=== PATIENT | male | born 1990 | race African-American/Black ===

== ENCOUNTER 2017-08-05 17:46 | Emergency (ER) | payer SELFPAY ==
[2017-08-05 17:47] VITALS: BP 137/75; PULSE 109; RESP 16; TEMP 36.9; O2SAT 100; BMI 28.7
[2017-08-05 18:58] LABS: Absolute Lymphocyte Count 1.79 X10^3/ul (0.83-4.51); Absolute Neutrophil Count 6.5 X10^3/uL (2.0-7.7); Basophil# 0.01 X10^3/uL; Basophil% 0.1 % (0-1); Eosinophil# 0.17 X10^3/uL; Eosinophils% 1.8 % (0-5); Hematocrit 43.1 % (40-54); Hemoglobin 14.8 g/dl (13.0-16.5); Lymphocyte # 1.79 X10^3/ul (4.0); Lymphocyte % 19.4 % (19-41); Mean Corp Hgb Conc 34.3 g/gl (32-36); Mean Corpuscular Hgb 32.2 pg (27.0-32.0); Mean Corpuscular Volume 93.7 fL (80-94); Mean Platelet Vol. 8.8 fl (6.2-12.0); Monocyte# 0.82 X10^3/uL; Monocyte% 8.9 % (0-10); Neutrophil # 6.45 X10^3/uL (2.7-7.7); Neutrophil % 69.8 % (47-70); POSITIVE COUNT NO; POSITIVE DIFFERENTIAL NO; POSITIVE MORPHOLOGY NO; Platelet Count 297 K/mm3 (150-450); RBC Distribution Width CV 13.2 % (11.6-14.6); RBC Distribution Width SD 45.6 fl (35.1-43.9); White Blood Count 9.2 K/mm3 (4.4-11.0)
[2017-08-05 19:45] LABS: Alcohol, Blood (Medical)-Serum < 3.0 mg/dL
[2017-08-05 19:48] LABS: Anion Gap 9 (5-15); BUN 9 mg/dL (7-18); BUN/Creat Ratio 8.2 RATIO (10-20); Calcium,Total 8.9 mg/dL (8.5-10.1); Chloride 107 mmol/L (98-107); EST Glomerular Filtration Rate 85 mL/min (>60); Est Glom Filt Rate - Afr Amer 103 mL/min (>60); Estimated Creatinine Clearance 104.15 ml/min; Glucose 94 mg/dL (74-106); Potassium 3.3 mmol/L (3.5-5.1); Sodium Level 140 mmol/L (136-145)
[2017-08-05 19:54] VITALS: RESP 18
[2017-08-05 19:56] LABS: Amphetamine Urine VISTA POSITIVE (<1000 ng/mL); Barbiturate Urine VISTA NEGATIVE (< 200 ng/mL); Benzodiazepine Urine VISTA NEGATIVE (< 200 ng/mL); Cocaine Urine VISTA NEGATIVE (< 300 ng/mL); Ecstacy Urine VISTA NEGATIVE (< 500 ng/mL); Methadone Urine VISTA NEGATIVE (< 300 ng/mL); PCP Urine VISTA NEGATIVE (< 25 ng/mL); THC Urine VISTA POSITIVE (< 50 ng/mL); Vista UDS pH Range 6
--- NOTE | 2017-08-05 20:13 | NURSING ---
CRISIS HERE TO SEE PT.
[2017-08-05 21:21] VITALS: BP 127/76; PULSE 72; RESP 18; O2SAT 100
[2017-08-05 22:17] VITALS: RESP 18
--- NOTE | 2017-08-05 23:07 | ED.VISSUMM ---
- ER Visit Summary Date of Service: 08/05/17 Chief Complaint: [Abnormal behavior] History of Present Illness: The patient is a 26 M [presents to the emergency department with complaint of increasing abnormal behavior. Patient states that he moved back to [place] in January 2017 from [place]. In [place] patient was being medicated for bipolar disorder and personality disorder. Patient does not know what medications he was taking. Once he moved to [place] he stopped taking all his medications because he thought he was doing better. Over last several weeks he has noticed increased agitation and explosive disorder. Patient states that he will have certain behaviors and not have any recollection of what he did. Last night states that he was standing on a bridge and had a fleeting thought of what would happen if he were to just jump. Paper patient does not believe that he would actually harm himself at this time. Patient would like to get some help to get back on his medications. Patient denies auditory or visual hallucinations.] Physical Examination: [HEENT-PERRLA, EOMI. Cranial nerves II through XII grossly intact. TMs clear. Mucous membranes moist. No adenopathy. Cardiovascular-regular rate and rhythm without murmur or ectopy Lungs-clear to auscultation, chest wall stable without crepitus or subcu emphysema Abdomen-normoactive bowel sounds, soft, nontender, no rebound or rigidity, no peritoneal signs. Extremities-intact ?4, normal range of motion, normal pulses, atraumatic] Test Results: [CBC with differential obtained was normal. Chemistries unremarkable. Toxicology screen was positive for amphetamines and marijuana. Alcohol was negative.] Emergency Department Course and Treatment: [Patient pending evaluation by crisis] Treatment Plan: [Pending evaluation by crisis] Disposition: [Pending evaluation by crisis] Impression: [Depression Suicidal ideation Dissociative personality disorder] This note was generated with Searchles dictation software. It may contain incorrect words, spelling, and punctuation that were not noted in review of the chart prior to signing ED Disposition - Plan for ED Patient: Chief Complaint: Mental Health Referrals: Care Physician,No Primary [Primary Care Provider] -
--- NOTE | 2017-08-05 23:10 | ED.DCSUM_ITS ---
- ER Visit Summary Date of Service: 08/05/17 Chief Complaint: [Abnormal behavior] History of Present Illness: The patient is a 26 M [presents to the emergency department with complaint of increasing abnormal behavior. Patient states that he moved back to [place] in January 2017 from [place]. In [place] patient was being medicated for bipolar disorder and personality disorder. Patient does not know what medications he was taking. Once he moved to [place] he stopped taking all his medications because he thought he was doing better. Over last several weeks he has noticed increased agitation and explosive disorder. Patient states that he will have certain behaviors and not have any recollection of what he did. Last night states that he was standing on a bridge and had a fleeting thought of what would happen if he were to just jump. Paper patient does not believe that he would actually harm himself at this time. Patient would like to get some help to get back on his medications. Patient denies auditory or visual hallucinations.] Physical Examination: [HEENT-PERRLA, EOMI. Cranial nerves II through XII grossly intact. TMs clear. Mucous membranes moist. No adenopathy. Cardiovascular-regular rate and rhythm without murmur or ectopy Lungs-clear to auscultation, chest wall stable without crepitus or subcu emphysema Abdomen-normoactive bowel sounds, soft, nontender, no rebound or rigidity, no peritoneal signs. Extremities-intact ?4, normal range of motion, normal pulses, atraumatic] Test Results: [CBC with differential obtained was normal. Chemistries unremarkable. Toxicology screen was positive for amphetamines and marijuana. Alcohol was negative.] Emergency Department Course and Treatment: [Patient pending evaluation by crisis ] Treatment Plan: [Pending evaluation by crisis] Disposition: [Pending evaluation by crisis] Impression: [Depression Suicidal ideation Dissociative personality disorder] This note was generated with castaclip dictation software. It may contain incorrect words, spelling, and punctuation that were not noted in review of the chart prior to signing ED Disposition - Plan for ED Patient: Chief Complaint: Mental Health Referrals: Care Physician,No Primary [Primary Care Provider] -
[2017-08-05 23:35] VITALS: BP 138/61; PULSE 89; RESP 18; O2SAT 98
--- NOTE | 2017-08-05 23:42 | ED.RN ---
EKG AND MAR WITH [employer] FAXED TO [facility].
[2017-08-06 01:00] VITALS: RESP 14
[2017-08-06 02:00] VITALS: RESP 16
--- NOTE | 2017-08-06 02:10 | EKG12_ITS ---
Test Reason : REYNALDO Blood Pressure : / mmHG Vent. Rate : 076 BPM Atrial Rate : 076 BPM P-R Int : 138 ms QRS Dur : 078 ms QT Int : 376 ms P-R-T Axes : 063 072 070 degrees QTc Int : 423 ms Normal sinus rhythm Normal ECG Confirmed by ELVIN HILARIO, ILDA ([id number]), map editor DARA SIM ([id number]) on 08/11/2017 3:03:34 PM Referred By: [facility] Confirmed By:ILDA OCONNOR MD
[2017-08-06 03:07] VITALS: RESP 14
--- NOTE | 2017-08-06 03:25 | ED.RN ---
ED FROM [facility] CALLED TO REPORT PT IS ACCEPTED.
[2017-08-06 03:42] VITALS: BP 110/73; PULSE 64; RESP 14; TEMP 36.9; O2SAT 99
[2017-08-06 04:15] VITALS: RESP 16
== END 2017-08-06 04:16 ==
PROVIDERS: Emergency Provider Emergency Medicine
DX: F44.9 Dissociative and conversion disorder, unspecified (principal); F32.9 Major depressive disorder, single episode, unspecified; R45.851 Suicidal ideations; Z72.0 Tobacco use; Z79.51 Long term (current) use of inhaled steroids
CPT/HCPCS: 80048; 80307; 80320; 85025; 93005; 99284; G0480

== ENCOUNTER 2018-09-30 15:37 | Emergency (ER) | payer SELFPAY ==
[2018-09-30 15:38] VITALS: BP 116/69; PULSE 77; RESP 17; TEMP 36.4; O2SAT 98; BMI 32.9
[2018-09-30 15:45] VITALS: BP 118/70; PULSE 70; RESP 14; O2SAT 98
--- NOTE | 2018-09-30 15:57 | CT_ITS ---
STUDY: CT ABDOMEN AND PELVIS WITHOUT CONTRAST REASON FOR EXAM: Male, 27 years old. Right abdominal pain since this a.m. RADIATION DOSAGE (If Supplied By Facility): CTDIvol = ( 13.97 ) mGy, DLP = ( 750.67 ) mGycm TECHNIQUE: Transaxial images were obtained from the dome of the diaphragm to the symphysis pubis without oral contrast, and without intravenous contrast. Sagittal and coronal images were reconstructed. Individualized dose optimization techniques were used for this CT. COMPARISON: 06/03/2014 FINDINGS: The visualized lung bases are unremarkable. The visualized portions of the heart are within normal limits. There is decreased attenuation of the liver consistent with steatosis. Normal gallbladder and extrahepatic biliary system. Normal spleen. Normal pancreas. Normal bilateral adrenal glands. Normal right kidney. Normal left kidney. Normal visualized stomach. Normal small intestine. Normal colon. The appendix is visualized and appears normal. Normal abdominal aorta. Normal inferior vena cava. Normal retroperitoneum. Normal urinary bladder. Normal abdominal wall. Normal osseous structures. CT/Abdomen/Pelvis without Cont IMPRESSION: No CT evidence of acute abdominopelvic pathology. No evidence of appendicitis, acute intestinal pathology, or acute obstructive uropathy. Fatty liver. Electronically Signed: Rudi Smith MD at 16:25 EDT Tel , Service support ,
[2018-09-30 16:15] LABS: Absolute Neutrophil Count 7.3 X10^3/uL (2.0-7.7); Basophil# 0.04 X10^3/uL; Basophil% 0.4 % (0-1); Eosinophil# 0.43 X10^3/uL; Eosinophils% 3.9 % (0-5); Hematocrit 41.1 % (40-54); Hemoglobin 14.5 g/dL (13.0-16.5); Lymphocyte % 21.1 % (19-41); Mean Corp Hgb Conc 35.3 g/dL (32-36); Mean Corpuscular Hgb 32.8 pg (27.0-32.0); Mean Platelet Vol. 9.3 fl (6.2-12.0); Monocyte# 0.77 X10^3/uL; Monocyte% 7.1 % (0-10); NRBC Flagged by Analyzer 0 % (0-5); Neutrophil # 7.31 X10^3/uL (2.7-7.7); Neutrophil % 67.1 % (47-70); Platelet Count 235 K/mm3 (150-450); RBC Distribution Width SD 44.5 fl (35.1-43.9); Red Blood Count 4.42 M/mm3 (4.6-6.2); White Blood Count 10.9 K/mm3 (4.4-11.0)
[2018-09-30 16:29] LABS: ALB/GLOB Ratio 1.2 RATIO (0.9-2.4); AST(SGOT) 24 U/L (15-37); Alanine Aminotransfer ALT/SGPT 53 U/L (16-61); Albumin, Serum 3.7 g/dL (3.2-5.0); Alkaline Phosphatase 67 U/L (45-117); Anion Gap 7 (5-15); BUN 11 mg/dL (7-18); BUN/Creat Ratio 12.6 RATIO (10-20); Calcium,Total 8.5 mg/dL (8.5-10.1); Chloride 109 mmol/L (98-107); Creatinine, Serum 0.88 mg/dL (0.70-1.30); EST Glomerular Filtration Rate 110 mL/min (>60); Est Glom Filt Rate - Afr Amer 132 mL/min (>60); Estimated Creatinine Clearance 124.97 ml/min; Globulin 3.1 g/dL (2.2-4.2); Glucose 91 mg/dL (74-106); Lipase 89 U/L (73-393); Potassium 3.6 mmol/L (3.5-5.1); Protein, Total 6.8 g/dL (6.4-8.2); Sodium Level 143 mmol/L (136-145)
[2018-09-30] MEDS: 0.9% Normal Saline 1,000 ML 1000 ML IV (16:37)
--- NOTE | 2018-09-30 16:56 | ED.VIS.GI ---
History of Present Illness Informant: Patient - Abdominal Pain/Flank Pain Onset: Today Context: Sudden Onset Timing: Continuous Quality: Dull Location: RLQ Current Severity: Moderate Maximum Severity: Severe Worsened by: Food Relieved by: Remaining Still - Nausea/Vomiting/Emesis GI Symptom: Nausea, Vomiting Onset: Today Quality: Nonbilious Severity: Severe Episodes: 3 - Diarrhea/Melena/Hematochezia GI Symptom: Negative for: Diarrhea, Melena, Hematochezia Associated Symptoms: Negative for: Dysuria, Frequency, Hematuria, Urgency Narrative: 27-year-old male presents with right lower quadrant abdominal pain. He woke up from a nap several hours ago and has been having right lower quadrant pain and 3 episodes of vomiting. No fevers. He has loss of appetite. Chills but no documented fever. No urinary symptoms. No diarrhea melena or hematochezia. No fevers. No back pain. No trauma or injury. History of fatty liver. Prior similar symptoms: No Recent Illness/Hospitalization: No <Greg Winkler - Last Filed: 09/30/18 16:59> <Marshall Fernández - Last Filed: 10/03/18 07:54> Chief Complaint: Abd Pain Past Medical History Prior records reviewed: Yes Past Medical History: - - fatty liver Surgical History: no surgical history Lives: With Family Smoking Status: Current every day smoker <Greg Winkler - Last Filed: 09/30/18 16:59> <Amanda Fernándezo - Last Filed: 10/03/18 07:54> - Allergies and Home Meds Allergies/Adverse Reactions: Allergies acetaminophen [From Tylenol] Allergy (Verified 09/30/18 15:38) Other Primary Care Physician: Cruzito Lima MD [STAFF PHYSICIAN] - Care Physician,No Primary [Primary Care Provider] - Review of Systems All systems negative except as indicated General: Reports: Chills. Denies: Fever Gastrointestinal: Reports: Abdominal pain, Nausea, Vomiting <Greg Winkler - Last Filed: 09/30/18 16:59> ENT: Denies: Bilateral ear pain, Rhinorrhea, Sore throat Cardiovascular: Denies: Chest pain, Palpitations Respiratory: Denies: Dyspnea, Cough, Dyspnea on exertion Gastrointestinal: Denies: Diarrhea, Melena, Hematochezia Genitourinary: Denies: Dysuria, Hematuria, Frequency Musculoskeletal: Denies: Myalgias, Arthralgias, Neck pain, Back pain, Extremity Pain Skin: Denies: Rash, Wounds Neurological: Denies: Headache, Weakness, Numbness Hematologic: Denies: Easy bruising, Easy bleeding <PradeepMarshall - Last Filed: 10/03/18 07:54> Physical Exam Vital Signs/Narrative: Vital Signs Temp Pulse Resp BP Pulse Ox 09/30/18 15:45 70 14 118/70 98 09/30/18 15:38 97.6 F L 77 17 116/69 98 Inital Vital Signs reviewed: Yes General: Well nourished, Well developed, Obese, No Acute Distress Head: Normocephalic, Atraumatic Eyes: Perrl, EOMI ENT: Moist mucous membranes Neck: Supple, Nontender Cardiovascular: Regular rate, Regular rhythm, No murmurs Respiratory: No distress, CTA bilaterally, Chest nontender Abdomen: Soft, Nondistended, Normal bowel sounds, No masses, Tender. Negative for: Psoas sign, Obturator sign, Rovsig's sign, Baires's sign Back: Nontender Extremities: Nontender, No edema Skin: Normal color, No rash Neurological: Alert, Oriented x3 <Greg Winkler - Last Filed: 09/30/18 16:59> Diagnostic/Tx/Re-eval CT: Abdomen and Pelvis - Medical Decision Making 27-year-old male presents with right lower quadrant abdominal pain with concern for appendicitis. Declined antibiotics. Laboratory work-up unremarkable. CT showed no acute. Repeat abdominal exam soft, nontender with no abrasion noted will be discharged home advised to have a repeat abdominal exam in 48 hours with his primary care physician or return to the emergency department. <Greg Winkler - Last Filed: 09/30/18 16:59> - Medical Decision Making Patient presents with abdominal pain that she localizes to the right lower quadrant. Patient denies fever or chills. She denies anorexia. She denies intolerance to food. She denies dysuria, frequency, urgency or hematuria. She denies history of trauma. Vital signs noted. She is afebrile. HEENT exam is unremarkable. Lungs are clear to auscultation. Heart is regular. Abdomen is soft with tenderness in the right lower quadrant. She does have tenderness in the proximity McBurney's point. Differential diagnosis includes mesenteric adenitis, appendicitis, inflammatory bowel disorder, ovarian cyst, ruptured, versus abdominal pain of unknown etiology. Patient's work-up including CAT scan is unremarkable. Patient was discharged to home with appropriate home-going instructions. <FernándezMarshall - Last Filed: 10/03/18 07:54> ED Disposition <Greg Winkler - Last Filed: 09/30/18 16:59> <PradeepMarshall - Last Filed: 10/03/18 07:54> - Plan for ED Patient: Disposition: Home or Assisted Living Diagnosis: Abdominal pain Instructions: ABDOMINAL PAIN, Unkown Cause, (Male) Prescriptions: Dicyclomine HCl [Bentyl] 20 mg PO TIDAC #20 cap Prescription Printed Ondansetron [Zofran Odt] 4 mg PO Q8H PRN PRN #10 tab PRN Reason: Nausea Prescription Printed Referrals: Care Physician,No Primary [Primary Care Provider] - Cruzito Lima MD [STAFF PHYSICIAN] -
[2018-09-30 17:09] VITALS: BP 112/74; PULSE 68; RESP 14; O2SAT 98
== END 2018-09-30 17:37 | disposition home or self-care (01) ==
PROVIDERS: Emergency Provider Physician Assistant Medical
DX: R10.31 Right lower quadrant pain (principal); E66.9 Obesity, unspecified
CPT/HCPCS: 74176; 80053; 83690; 85025; 96360; 99285; J7030; A4216

== ENCOUNTER 2023-08-12 09:58 | Emergency (ER) | payer MEDICAID, SELFPAY ==
[2023-08-12 09:58] VITALS: BP 130/111; PULSE 53; RESP 14; TEMP 37; O2SAT 99; BMI 28.8
--- NOTE | 2023-08-12 10:05 | EDS_ITS ---
HPI History of Present Illness Chief Complaint: Nausea/Vomiting Detail of Chief Complaint: Nausea, vomiting diarrhea Informant: patient Onset/Context/Timing Onset: Today (0700) Context: Sudden Onset Timing: Intermittent and Waxes and wanes Quality: Nausea, vomiting and diarrhea Location: GI Current Severity: Severe Maximum Severity: Severe Worsened by: Patient believes he has food poisoning Relieved by: Nothing Associated Symptoms Associated Symptoms: Subjective fever Narrative Narrative: Patient is a 32-year-old male. He has history of hyperactive airway disease and was noted to be on dicyclomine in the past. He presents with nausea, vomiting diarrhea that started this morning. He has vomited 15-20 times has had numerous loose stools. He denies coffee-ground emesis or what appears to be blood in his emesis. He denies mucus or blood in his stool. He states his stool is watery. No one else that ate the food he ate is ill. He last ate at 5 PM. He denies headache, visual, ocular auditory symptoms. He denies cardiac respiratory symptoms Prior similar symptoms: Yes Recent Illness/Hospitalization: No PFSH PFSH Medical History no medical history Home Medications ?Medication ?Instructions ?Recorded ?Last Taken ?Type albuterol sulfate 90 mcg/actuation 1 - 2 puff inhalation Q4H PRN PRN 04/30/13 Unknown History aerosol inhaler (Ventolin HFA) Wheezing dicyclomine 10 mg capsule 20 mg (2 x 10 mg) PO TIDAC #20 caps 09/30/18 Unknown Rx ondansetron 4 mg disintegrating 4 mg PO Q8H PRN PRN Nausea #10 tabs 09/30/18 Unknown Rx tablet Allergy/AdvReac Type Severity Reaction Status Date / Time acetaminophen (From Tylenol) Allergy Other Verified 08/12/23 09:59 Surgical History no surgical history no surgical history Social History (Updated 08/12/23 @ 10:[address] Marshall Fernández MD) household members: family Smoking Status: Current every day smoker tobacco type: cigarettes ROS ROS ED Constitutional Constitutional ED: Reports chills, fever(s) and subjective; Denies sweats or weight loss Eyes Eyes: Denies blurry vision or change in vision ENT ENT ED: Denies rhinorrhea or sore throat Cardiovascular Cardiovascular: Denies chest pain or palpitations Respiratory/Chest Respiratory/Chest: Denies cough, dyspnea or dyspnea on exertion Gastrointestinal Gastrointestinal: Reports abdominal pain, diarrhea, nausea and vomiting; Denies constipation or melena Musculoskeletal Musculoskeletal: Denies arthralgias or myalgias Integumentary Denies rash Neurologic Neurologic: Denies headache(s) EXAM Physical Exam Const Vital Signs: 08/12/23 09:58 08/12/23 11:12 08/12/23 13:00 Temperature 98.6 F Temperature Source Temporal Pulse Rate 53 L 53 L 64 Respiratory Rate 14 16 18 Blood Pressure 130/111 H 124/81 H 101/60 Blood Pressure Mean 117 95 73 Pulse Ox 99 98 100 Oxygen Delivery Method Room Air Room Air Room Air Positive well nourished and well developed Constitutional Narrative: History and physical somewhat limited due to dry heaves presently limiting his complaint to give history other than nodding and yes no answers. General Appearance ED: well developed; Negative for pallor HEENT Reports moist mucous membranes Negative for trauma or tenderness Eyes Negative for PERRL or EOMs intact bilaterally General Eye ED: Negative for pale conjunctiva or scleral icterus Neck supple Resp normal respiratory effort and clear to auscultation bilaterally Cardio regular rhythm, S1 normal heart sound, S2 normal heart sound and no murmurs Rate: bradycardia GI non-tender, non-distended and no masses; Negative for hepatosplenomegaly Auscultation: hypoactive bowel sounds Palpation: tender epigastric Back/Spine no CVA tenderness Extremity normal to inspection General Extremety ED: Negative for edema or tenderness General Extremity: Negative for edema Neuro oriented x3 and CN's II-XII intact bilaterally Sensorium / Orientation: alert Psych mental status grossly normal Skin no rashes or lesions noted, no wounds and skin turgor normal Skin Narrative: Patient is diaphoretic. General Skin Exam: Negative for elasticity normal, jaundice or pallor MDM MDM MDM Narrative Medical decision making narrative: Differential diagnosis would include viral illness, doubt food poisoning or bacterial infectious cause. Once patient stops vomiting will ask if there is history of marijuana use. IV was established and he received 1 L of normal saline and Zofran for nausea and vomiting. Once he no longer has dry heaves will complete abdominal exam. BMP was obtained to assess renal function, electrolytes and specifically potassium for hypokalemia and light of the amount of diarrhea he has had. Lab Data Attestation: I reviewed the patient's lab results. Lab results narrative: Basic metabolic panel was slight elevation of chloride of 110. Glucose is elevated 148. BUN and creatinine are normal with an estimated GFR of 86. Potassium is normal. Labs: Laboratory Results - last 24 hr 08/12/23 10:15 Sodium 141 Potassium 3.7 Chloride 110 H Carbon Dioxide 24.0 Anion Gap 7 BUN 15 Creatinine 1.05 Estim Creat Clear Calc 106.83 Est GFR (MDRD) Af Amer 104 Est GFR (MDRD) Non-Af 86 BUN/Creatinine Ratio 14.3 Glucose 148 H Calcium 9.4 Treatment and Re-Evaluation :: Patient was reassessed at 1115. Patient reports he was not able to drink the water with ice without vomiting. In light of this Reglan was ordered. Patient was reassessed at approximately 1300. Patient was unable to drink fluids. 10 mg of Reglan was ordered. I was informed at 1320 that patient still has nausea with dry heaves. In light of the fact that he now admits to cannabis use will treat using the cyclic vomiting order set. Patient was reassessed at 1431. Patient is asleep most likely due to the fact that he received Benadryl and Compazine IV piggyback. Will reassess in an hour. Discharge Plan Triage Chief Complaint: Nausea/Vomiting ED Provider: Marshall Fernández Dx/Rx/DC Orders Clinical Impression: Cannabis hyperemesis syndrome concurrent with and due to cannabis abuse, Acute dehydration, Abdominal pain, acute Instructions: Cannabinoid Hyperemesis Syndrome Prescriptions: No Action albuterol sulfate [Ventolin HFA] 1 INHALER inhaler 1 - 2 puff inhalation Q4H PRN PRN (Reason: Wheezing) ondansetron 4 MG tablet 4 mg PO Q8H PRN PRN (Reason: Nausea) Qty: 10 0RF dicyclomine 10 MG capsule 20 mg PO TIDAC Qty: 20 0RF Primary Care Provider: Care Physician,No Primary Referrals: Care Physician,No Primary [Primary Care Provider] - Print Language: Upper Sorbian Disposition Disposition: Home, Self Care
[2023-08-12] MEDS: 0.9% Normal Saline (1000mL) 1,000 ML 1000 ML IV (10:15)
[2023-08-12] MEDS: Ondansetron 4 MG/2 ML Vial IV (10:15)
[2023-08-12 10:36] LABS: Anion Gap 7 (5-15); BUN 15 mg/dL (7-18); BUN/Creat Ratio 14.3 RATIO (10-20); Calcium,Total 9.4 mg/dL (8.5-10.1); Chloride 110 mmol/L (98-107); Creatinine, Serum 1.05 mg/dL (0.70-1.30); EST Glomerular Filtration Rate 86 mL/min (>60); Est Glom Filt Rate - Afr Amer 104 mL/min (>60); Estimated Creatinine Clearance 106.83 ml/min; Glucose 148 mg/dL (74-106); Potassium 3.7 mmol/L (3.5-5.1); Sodium Level 141 mmol/L (136-145)
[2023-08-12 11:12] VITALS: BP 124/81; PULSE 53; RESP 16; O2SAT 98
[2023-08-12] MEDS: Metoclopramide 10 MG/2 ML Vial 5 MG IV (11:59)
[2023-08-12 13:00] VITALS: BP 101/60; PULSE 64; RESP 18; O2SAT 100
[2023-08-12] MEDS: LORazepam 2 MG/ML Syringe 1 MG IV (14:06)
[2023-08-12] MEDS: DiphenhydrAMINE 25 MG, ChlorproMAZINE IM 25 MG in 0.9% Normal Saline (100mL Bag) 100 ML 203 MG IV (14:06)
[2023-08-12] MEDS: Famotidine 200 MG/20 ML MDV 20 MG in 0.9% Normal Saline (Pres. free 8 ML 300 MG IV (14:06)
[2023-08-12 15:00] VITALS: BP 114/57; PULSE 69; RESP 16; O2SAT 99
[2023-08-12 15:39] VITALS: BP 153/90; PULSE 83; RESP 18; TEMP 36.4; O2SAT 98
--- NOTE | 2023-08-13 18:46 | ED.RN ---
PTS MOTHER CALLED STATING PT DID NOT GET HIS DC PAPERS OR SCRIPTS BACK FROM [employer]. MEDICATION[facility] CALLED [facility] PER PT REQUEST
== END 2023-08-12 15:48 | disposition home or self-care (01) ==
PROVIDERS: Emergency Provider Emergency Medicine; Visit Provider Emergency Medicine
DX: R11.2 Nausea with vomiting, unspecified (principal); F12.188 Cannabis abuse with other cannabis-induced disorder; E86.0 Dehydration; F17.210 Nicotine dependence, cigarettes, uncomplicated; R19.7 Diarrhea, unspecified; R10.9 Unspecified abdominal pain
CPT/HCPCS: 80048; 96361; 96365; 96368; 96375; 99283; J7030; A4216; J2405; J3490